=== PATIENT | male | born 1985 | race Caucasian/White ===

== ENCOUNTER 2019-02-05 01:42 | Emergency (ER) | payer SELFPAY ==
[2019-02-05] MEDS ORDERED: Morphine 2 MG/ML Syringe IVPUSH ONE (02:04)
[2019-02-05] MEDS ORDERED: Sodium Chloride 0.9% 10 ML Syringe FLUSH PRN (02:04)
[2019-02-05] MEDS ORDERED: Sodium Chloride 0.9% 2.5 ML Syringe FLUSH PRN (02:04)
[2019-02-05] MEDS ORDERED: Ondansetron 4 MG/2 ML SDV IVPUSH ONE (02:04)
[2019-02-05] MEDS ORDERED: Sodium Chloride 0.9% 1,000 ML IV ONE (02:04)
[2019-02-05] MEDS ORDERED: Pantoprazole 40 MG Vial IVPUSH ONE (02:04)
--- NOTE | 2019-02-05 02:07 | EDM.PDOC ---
ED HPI GENERAL MEDICAL PROBLEM - General Chief Complaint: Abdominal Pain Stated Complaint: ABD PAIN Time Seen by Provider: 02/05/19 02:01 - History of Present Illness INITIAL COMMENTS - FREE TEXT/NARRATIVE: HISTORY AND PHYSICAL: History of present illness: The patient is a 33-year-old male who presents with epigastric upper abdominal pain that started today associated with some small amount of vomiting and nausea but no diarrhea. He says that last evening he was drinking alcohol and eating [place] food and he does not know if that caused it. He has no history of ulcer or any abdominal surgical history other than a rib harvest for ear surgery. He says he used to drink on a more regular basis but he stopped that and last night was the first time he drank in a while. He has not tried any over -the-counter meds and he has no back or flank pain. He has no lower abdominal pain and with the vomiting there is no black or bloody emesis. Review of systems: As per history of present illness and below otherwise all systems reviewed and negative. Past medical history: As per history of present illness and as reviewed below otherwise noncontributory. Surgical history: As per history of present illness and as reviewed below otherwise noncontributory. Social history: No reported history of drug or alcohol abuse. Family history: As per history of present illness and as reviewed below otherwise noncontributory. Physical exam: General: Well-developed well-nourished man who is nontoxic and vital signs are noted by me HEENT: Atraumatic, normocephalic, , negative for conjunctival pallor or scleral icterus, mucous membranes tacky, throat clear, neck supple, nontender, trachea midline. Lungs: Clear to auscultation, breath sounds equal bilaterally, chest nontender. Heart: S1S2, regular rhythm and tachycardic rate on my evaluation but no murmurs , negative for clicks, rubs, or JVD. Abdomen: Soft, nondistended, gastric tenderness without rebound or guarding and bowel sounds are hypoactive Negative for masses or hepatosplenomegaly. Negative for costovertebral tenderness. Pelvis: Stable nontender. Genitourinary: Deferred. Rectal: Deferred. Extremities: Atraumatic, negative for cords or calf pain. Neurovascular unremarkable. Neuro: Awake, alert, oriented. Cranial nerves II through XII unremarkable. Cerebellum unremarkable. Motor and sensory unremarkable throughout. Exam nonfocal. Diagnostics: CBC CMP amylase lipase INR H pylori alcohol level UA with reflex Therapeutics: IV fluids Protonix Zofran and morphine He is aware of all testing results and need for medications and follow-up after completion of the therapy. I've also advised him on dietary restrictions and need for follow-up. He is also aware of the slight elevation in his liver enzymes and the need to refrain from drinking alcohol going forward to get follow-up of those lab tests Impression: , Epigastric upper abdominal pain, H. pylori positive Definitive disposition and diagnosis as appropriate pending reevaluation and review of above. epigastric Pain Score (Numeric/FACES): 8 - Related Data Allergies Allergy/AdvReac Type Severity Reaction Status Date / Time No Known Allergies Allergy Verified 02/05/19 01:44 Home Meds: Home Meds . [No Known Home Meds] 02/05/19 [History] Past Medical History - Past Surgical History HEENT Surgical History: Reports: Other (See Below) Other HEENT Surgeries/Procedures: ear sx GI Surgical History: Reports: Other (See Below) Other GI Surgeries/Procedures: abdominal sx Social & Family History - Family History Family Medical History: Noncontributory - Tobacco Use Smoking Status *Q: Never Smoker - Recreational Drug Use Recreational Drug Use: No ED ROS GENERAL - Review of Systems Review Of Systems: ROS reveals no pertinent complaints other than HPI. ED EXAM, GENERAL - Physical Exam Exam: See Below (See dictation) Course - Vital Signs Last Recorded V/S: Last Vital Signs Temp 36.8 C 02/05/19 01:44 Pulse 125 H 02/05/19 01:44 Resp 18 02/05/19 01:44 BP 141/105 H 02/05/19 01:44 Pulse Ox 95 02/05/19 01:44 - Orders/Labs/Meds Orders: Active Orders 24 hr Category Date Time Status Abdomen 2V AP Flat Upright [CR] Stat Exams 02/05/19 03:05 Taken Sodium Chloride 0.9% [Saline Flush] Med 02/05/19 02:04 Active 10 ml FLUSH ASDIRECTED PRN Sodium Chloride 0.9% [Saline Flush] Med 02/05/19 02:04 Active 2.5 ml FLUSH ASDIRECTED PRN Saline Lock Insert [OM.PC] Stat Oth 02/05/19 02:03 Ordered Medication Orders Sodium Chloride (Saline Flush) 10 ml FLUSH ASDIRECTED PRN PRN Reason: Keep Vein Open Sodium Chloride (Saline Flush) 2.5 ml FLUSH ASDIRECTED PRN PRN Reason: Keep Vein Open Labs: Laboratory Tests 02/05/19 02/05/19 02/05/19 Range/Units 02:18 02:18 02:18 WBC 9.46 (4.0-11.0) K/uL RBC 5.14 (4.50-5.90) M/uL Hgb 15.7 (13.0-17.0) g/dL Hct 47.1 (38.0-50.0) % MCV 91.6 (80.0-98.0) fL MCH 30.5 (27.0-32.0) pg MCHC 33.3 (31.0-37.0) g/dL RDW Std Deviation 44.5 (28.0-62.0) fl RDW Coeff of Fabricio 13 (11.0-15.0) % Plt Count 225 (150-400) K/uL MPV 11.40 (7.40-12.00) fL Neut % (Auto) 65.3 (48.0-80.0) % Lymph % (Auto) 23.4 (16.0-40.0) % [place] % (Auto) 9.3 (0.0-15.0) % Eos % (Auto) 1.4 (0.0-7.0) % Baso % (Auto) 0.6 (0.0-1.5) % Neut # (Auto) 6.2 H (1.4-5.7) K/uL Lymph # (Auto) 2.2 (0.6-2.4) K/uL [place] # (Auto) 0.9 H (0.0-0.8) K/uL Eos # (Auto) 0.1 (0.0-0.7) K/uL Baso # (Auto) 0.1 (0.0-0.1) K/uL Nucleated RBC % 0.0 /100WBC Nucleated RBCs # 0 K/uL INR 1.01 Sodium 141 (136-148) mmol/L Potassium 3.4 L (3.5-5.1) mmol/L Chloride 104 (98-107) mmol/L Carbon Dioxide 23.3 (21.0-32.0) mmol/L BUN 8 (7.0-18.0) mg/dL Creatinine 1.0 (0.8-1.3) mg/dL Est Cr Clr Drug Dosing 109.50 mL/min Estimated GFR (MDRD) > 60.0 ml/min Glucose 123 H (74-106) mg/dL Calcium 8.7 (8.5-10.1) mg/dL Total Bilirubin 0.6 (0.2-1.0) mg/dL AST 38 H (15-37) IU/L ALT 78 H (14-63) IU/L Alkaline Phosphatase 121 H (46-116) U/L Total Protein 7.2 (6.4-8.2) g/dL Albumin 3.9 (3.4-5.0) g/dL Globulin 3.3 (2.6-4.0) g/dL Albumin/Globulin Ratio 1.2 (0.9-1.6) Amylase 53 (25-115) U/L Lipase 122 (73-393) U/L Urine Color Urine Appearance Urine pH (5.0-8.0) Ur Specific [place] (1.001-1.035) Urine Protein (NEGATIVE) mg/dL Urine Glucose (UA) (NEGATIVE) mg/dL Urine Ketones (NEGATIVE) mg/dL Urine Occult Blood (NEGATIVE) Urine Nitrite (NEGATIVE) Urine Bilirubin (NEGATIVE) Urine Urobilinogen (<2.0) EU/dL Ur Leukocyte Esterase (NEGATIVE) Ethyl Alcohol <3 mg/dL H. pylori IgG Antibody (NEG) 02/05/19 02/05/19 Range/Units 02:18 03:22 WBC (4.0-11.0) K/uL RBC (4.50-5.90) M/uL Hgb (13.0-17.0) g/dL Hct (38.0-50.0) % MCV (80.0-98.0) fL MCH (27.0-32.0) pg MCHC (31.0-37.0) g/dL RDW Std Deviation (28.0-62.0) fl RDW Coeff of Fabricio (11.0-15.0) % Plt Count (150-400) K/uL MPV (7.40-12.00) fL Neut % (Auto) (48.0-80.0) % Lymph % (Auto) (16.0-40.0) % [place] % (Auto) (0.0-15.0) % Eos % (Auto) (0.0-7.0) % Baso % (Auto) (0.0-1.5) % Neut # (Auto) (1.4-5.7) K/uL Lymph # (Auto) (0.6-2.4) K/uL [place] # (Auto) (0.0-0.8) K/uL Eos # (Auto) (0.0-0.7) K/uL Baso # (Auto) (0.0-0.1) K/uL Nucleated RBC % /100WBC Nucleated RBCs # K/uL INR Sodium (136-148) mmol/L Potassium (3.5-5.1) mmol/L Chloride (98-107) mmol/L Carbon Dioxide (21.0-32.0) mmol/L BUN (7.0-18.0) mg/dL Creatinine (0.8-1.3) mg/dL Est Cr Clr Drug Dosing mL/min Estimated GFR (MDRD) ml/min Glucose (74-106) mg/dL Calcium (8.5-10.1) mg/dL Total Bilirubin (0.2-1.0) mg/dL AST (15-37) IU/L ALT (14-63) IU/L Alkaline Phosphatase (46-116) U/L Total Protein (6.4-8.2) g/dL Albumin (3.4-5.0) g/dL Globulin (2.6-4.0) g/dL Albumin/Globulin Ratio (0.9-1.6) Amylase (25-115) U/L Lipase (73-393) U/L Urine Color YELLOW Urine Appearance CLEAR Urine pH 7.0 (5.0-8.0) Ur Specific [place] <= 1.005 (1.001-1.035) Urine Protein NEGATIVE (NEGATIVE) mg/dL Urine Glucose (UA) NEGATIVE (NEGATIVE) mg/dL Urine Ketones NEGATIVE (NEGATIVE) mg/dL Urine Occult Blood NEGATIVE (NEGATIVE) Urine Nitrite NEGATIVE (NEGATIVE) Urine Bilirubin NEGATIVE (NEGATIVE) Urine Urobilinogen 0.2 (<2.0) EU/dL Ur Leukocyte Esterase NEGATIVE (NEGATIVE) Ethyl Alcohol mg/dL H. pylori IgG Antibody POSITIVE H (NEG) Meds: Medications Generic Name Dose Route Start Last Admin Trade Name Freramy PRN Reason Stop Dose Admin Sodium Chloride 10 ml 02/05/19 02:04 Saline Flush FLUSH ASDIRECTED PRN Keep Vein Open Sodium Chloride 2.5 ml 02/05/19 02:04 Saline Flush FLUSH ASDIRECTED PRN Keep Vein Open Discontinued Medications Generic Name Dose Route Start Last Admin Trade Name Freramy PRN Reason Stop Dose Admin Sodium Chloride 1,000 mls @ 999 mls/hr 02/05/19 02:04 02/05/19 02:31 Normal Saline IV 02/05/19 03:04 999 mls/hr STAT ONE Administration Sodium Chloride Confirm 02/05/19 02:36 02/05/19 02:41 Normal Saline Administered 02/05/19 02:37 20 mls/hr Dose Administration 20 mls @ as directed .ROUTE .STK-MED ONE Morphine Sulfate 2 mg 02/05/19 02:04 02/05/19 02:32 Morphine IVPUSH 02/05/19 02:05 2 mg ONETIME ONE Administration Ondansetron HCl 4 mg 02/05/19 02:04 02/05/19 02:31 Zofran IVPUSH 02/05/19 02:05 4 mg ONETIME ONE Administration Pantoprazole Sodium 80 mg 02/05/19 02:04 02/05/19 02:34 Protonix Iv IVPUSH 02/05/19 02:05 80 mg .BOLUS ONE Administration Sodium Chloride 20 ml 02/05/19 02:42 02/05/19 02:44 Normal Saline IV 02/05/19 02:43 Not Given ONETIME ONE Departure - Departure Time of Disposition: 03:42 Disposition: Home, Self-Care 01 Condition: Good Clinical Impression: H. pylori infection, Epigastric abdominal pain - Discharge Information Referrals: PCP,None [Primary Care Provider] - Forms: ED Department Discharge Additional Instructions: The following information is given to patients seen in the emergency department who are being discharged to home. This information is to outline your options for follow-up care. We provide all patients seen in our emergency department with a follow-up referral. The need for follow-up, as well as the timing and circumstances, are variable depending upon the specifics of your emergency department visit. If you don't have a primary care physician on staff, we will provide you with a referral. We always advise you to contact your personal physician following an emergency department visit to inform them of the circumstance of the visit and for follow-up with them and/or the need for any referrals to a consulting specialist. The emergency department will also refer you to a specialist when appropriate. This referral assures that you have the opportunity for followup care with a specialist. All of these measure are taken in an effort to provide you with optimal care, which includes your followup. Under all circumstances we always encourage you to contact your private physician who remains a resource for coordinating your care. When calling for followup care, please make the office aware that this follow-up is from your recent emergency room visit. If for any reason you are refused follow-up, please contact the [facility] emergency department at and ask to speak to the emergency department charge nurse. [facility] Primary care- [place] [address] Please take all medications as prescribed to treat your H. pylori infection and use Zofran as needed for nausea and vomiting. Please refrain from drinking alcohol and caffeinated products as well as spicy foods as this may may trigger more discomfort. Please call and schedule a follow-up appointment with your provider or one of ours in the clinic for further care and reevaluation and return to ER as needed and as discussed - My Orders Last 24 Hours: My Active Orders 02/05/19 02:03 Saline Lock Insert [OM.PC] Stat 02/05/19 02:04 Sodium Chloride 0.9% [Saline Flush] 10 ml FLUSH ASDIRECTED PRN Sodium Chloride 0.9% [Saline Flush] 2.5 ml FLUSH ASDIRECTED PRN 02/05/19 03:05 Abdomen 2V AP Flat Upright [CR] Stat - Assessment/Plan Last 24 Hours: My Active Orders 02/05/19 02:03 Saline Lock Insert [OM.PC] Stat 02/05/19 02:04 Sodium Chloride 0.9% [Saline Flush] 10 ml FLUSH ASDIRECTED PRN Sodium Chloride 0.9% [Saline Flush] 2.5 ml FLUSH ASDIRECTED PRN 02/05/19 03:05 Abdomen 2V AP Flat Upright [CR] Stat
[2019-02-05] MEDS ORDERED: Sodium Chloride 0.9% 20 ML ONE (02:36)
[2019-02-05] MEDS ORDERED: Sodium Chloride 0.9% 10 ML SDV IV ONE (02:42)
[2019-02-05 02:47] LABS: CHLORIDE,CL 104 mmol/L (98-107); SODIUM,NA 141 mmol/L (136-148)
--- NOTE | 2019-02-05 03:43 | CR ---
Indication: Abdomen pain Technique: Abdomen 2 view. Comparison: None. Findings: Bowel: Bowel pattern is normal. Moderate amount of stool within the colon. Other: No sign of free air. No sign of soft tissue mass. No suspicious calcifications. Osseous structures are unremarkable for age. Impression: No evidence of ileus or obstruction. Moderate amount of stool within the colon. Dictated by Francisco Ulrich MD @ Feb 05 2019 3:40AM Signed by Dr. Francisco Ulrich @ Feb 05 2019 3:41AM
== END 2019-02-05 04:03 | disposition home or self-care (01) ==
LOC: MW.ED 01:42
DX: A04.8 Other specified bacterial intestinal infections (principal)
CPT/HCPCS: 36415; 74019; 80053; 81003; 82150; 83690; 85025; 85610; 86677; 96361; 96374; 96375; 99284; C9113; G0480; J2270; J2405; J7040